=== PATIENT | male | born 1950 | race Caucasian/White ===

== ENCOUNTER 2021-05-30 19:24 | Emergency (ER) | payer OTHER ==
[~2021-05-30] VITALS: Ht 167.6 cm; Wt 89.8 kg
[2021-05-30] MEDS ORDERED: ALFUZOSIN HCL10 MG PO (19:48)
[2021-05-30] MEDS ORDERED: BAYER CHEWABLE81 MG PO (19:48)
[2021-05-30] MEDS ORDERED: LASIX40 MG PO (19:49)
[2021-05-30] MEDS ORDERED: GLUCOSAMINE &1 EACH PO (19:49)
[2021-05-30] MEDS ORDERED: IBUPROFEN800 MG PO (19:50)
[2021-05-30] MEDS ORDERED: LISINOPRIL20 MG PO (19:50)
[2021-05-30] MEDS ORDERED: ALDACTONE25 MG PO (19:51)
[2021-05-30] MEDS ORDERED: K-TAB ER20 MEQ PO (19:51)
[2021-05-30] MEDS ORDERED: ZINC50 MG PO (19:52)
--- NOTE | 2021-05-31 13:48 | EKG ---
[facility] [address] [facility] [place], [place] [address] Signed Normal sinus rhythm with sinus arrhythmia Possible Inferior infarct , age undetermined Abnormal ECG No previous ECGs available Confirmed by KAPIL VUONG MD ([id number] on 05/31/2021 1:48:25 PM Electronically Signed By: KAPIL VUONG MD 05/31/21 1348 PATIENT NAME: ULISES SHARP Electrocardiogram DATE OF : 50 PHYSICIAN: KAPIL VUONG MD REPORT #: [id number] REPORT IS CONFIDENTIAL AND NOT TO BE RELEASED WITHOUT AUTHORIZATION
== END 2021-05-30 23:14 | disposition home or self-care (01) ==
LOC: ED 19:24
DX: S01.311A Laceration without foreign body of right ear, initial encounter (principal); S16.1XXA Strain of muscle, fascia and tendon at neck level, initial encounter; V47.5XXA Car driver injured in collision with fixed or stationary object in traffic accident, initial encounter; Z79.899 Other long term (current) drug therapy; Z79.82 Long term (current) use of aspirin
CPT/HCPCS: 36415; 70450; 71045; 72125; 81001; 85025; 85610; 85730; 93005; 93010; 99285-25; A9270